=== PATIENT | female | born 1950 | race Caucasian/White ===

== ENCOUNTER → 2024-02-11 12:26 | Outpatient (REF) | payer OTHER, SELFPAY ==
[2024-02-11 13:34] LABS: % Immature Granulocytes 0.5 % (0-0.5); % Lymphocytes 48.2 % (20.5-51.1); % Monocytes 10.7 % (1.7-9.3); % Neutrophils 33.6 % (42.2-75.2); Absolute Eosinophils 0.3 10^3/uL (0-0.7); Absolute Monocytes 0.5 10^3/uL (0.1-0.6); Absolute Neutrophils 1.4 10^3/uL (1.4-6.5); Hematocrit 42.6 % (37.0-47.0); Mean Corp Hgb Conc. 32.9 g/dL (33.0-37.0); Mean Corpuscular Hgb 29.2 pg (27.0-31.0); Mean Corpuscular Volume 88.9 fL (81.0-99.0); Nucleated Red Blood Cells % 0 %; Platelet Count 205 10^3/uL (130-400); Red Blood Cell Count 4.79 10^6/uL (4.20-5.40); Red Cell Dist. Width 14.4 % (11.5-14.5); White Blood Cell Count 4.2 10^3/uL (4.8-10.8)
[2024-02-11 14:27] LABS: ALT (SGPT) 23 U/L (0-35); AST (SGOT) 28 U/L (14-36); Albumin 4.6 g/dl (3.5-5.0); Alkaline Phosphatase 77 U/L (38-126); Blood Urea Nitrogen 16 mg/dl (7-17); Carbon Dioxide 31 mmol/L (22-30); Chloride 103 mmol/L (98-107); Glucose 80 mg/dl (70-99); Potassium 4.4 mmol/L (3.5-5.1); Sodium 138 mmol/L (135-145); Total Bilirubin 0.5 mg/dl (0.2-1.3); Total Protein 7.6 g/dl (6.3-8.2); eGFR > 60.00
[2024-02-11 14:31] LABS: C-Reactive Protein < 5.00 mg/L (0.0-10.00)
[2024-02-11 14:54] LABS: Vitamin D, 25-OH*** 47.5 ng/mL (30-80)
== END ==
LOC: REG 12:26
PROVIDERS: ATTENDING PHYSICIAN Specialist; FAMILY PHYSICIAN Internal Medicine; OTHER PHYSICIAN Internal Medicine Rheumatology
DX: M16.12 Unilateral primary osteoarthritis, left hip (principal); E55.9 Vitamin D deficiency, unspecified; M15.4 Erosive (osteo)arthritis; M50.30 Other cervical disc degeneration, unspecified cervical region; M54.2 Cervicalgia; M85.80 Other specified disorders of bone density and structure, unspecified site; R79.82 Elevated C-reactive protein (CRP); Z51.81 Encounter for therapeutic drug level monitoring; Z68.29 Body mass index [BMI] 29.0-29.9, adult
CPT/HCPCS: 36415; 80053; 82306; 85025; 86140

== ENCOUNTER → 2024-07-21 13:08 | Outpatient (REF) | payer OTHER, SELFPAY ==
[2024-07-21 14:53] LABS: % Basophils 0.9 % (0-2); % Eosinophils 5.3 % (0-6); % Immature Granulocytes 0.7 % (0-0.5); % Lymphocytes 36.4 % (20.5-51.1); % Neutrophils 46.7 % (42.2-75.2); Absolute Eosinophils 0.2 10^3/uL (0-0.7); Absolute Lymphocytes 1.6 10^3/uL (1.2-3.4); Absolute Monocytes 0.4 10^3/uL (0.1-0.6); Hematocrit 40.3 % (37.0-47.0); Hemoglobin 13.4 g/dL (12.0-16.0); Mean Corp Hgb Conc. 33.3 g/dL (33.0-37.0); Mean Corpuscular Hgb 27.5 pg (27.0-31.0); Mean Corpuscular Volume 82.6 fL (81.0-99.0); Nucleated Red Blood Cells % 0 %; Platelet Count 194 10^3/uL (130-400); Red Blood Cell Count 4.88 10^6/uL (4.20-5.40); Red Cell Dist. Width 15.8 % (11.5-14.5); White Blood Cell Count 4.3 10^3/uL (4.8-10.8)
[2024-07-21 14:55] LABS: Urine Albumin Negative (Neg - Trace); Urine Bilirubin Negative (Negative); Urine Character Clear (Clear); Urine Color Yellow; Urine Glucose Negative (Negative); Urine Ketone Negative (Negative); Urine Leukocyte Negative (Negative); Urine Nitrite Negative (Negative); Urine Occult Blood Negative (Negative); Urine Urobilinogen Negative (Neg - 1+); Urine pH 6.5 (5.0-9.0)
[2024-07-21 15:22] LABS: ALT (SGPT) 42 U/L (0-35); AST (SGOT) 40 U/L (14-36); Albumin 4.5 g/dl (3.5-5.0); Alkaline Phosphatase 79 U/L (38-126); Blood Urea Nitrogen 15 mg/dl (7-17); Calcium 9.8 mg/dl (8.4-10.2); Carbon Dioxide 32 mmol/L (22-30); Chloride 99 mmol/L (98-107); Glucose 81 mg/dl (70-99); Potassium 4.3 mmol/L (3.5-5.1); Sodium 141 mmol/L (135-145); Total Bilirubin 0.4 mg/dl (0.2-1.3); Total Protein 7.3 g/dl (6.3-8.2); eGFR > 60.00
== END ==
LOC: REG 13:08
PROVIDERS: ATTENDING PHYSICIAN Internal Medicine Rheumatology
DX: M15.4 Erosive (osteo)arthritis (principal); M50.30 Other cervical disc degeneration, unspecified cervical region; M54.2 Cervicalgia; M85.80 Other specified disorders of bone density and structure, unspecified site; R79.82 Elevated C-reactive protein (CRP); Z51.81 Encounter for therapeutic drug level monitoring; Z68.29 Body mass index [BMI] 29.0-29.9, adult
CPT/HCPCS: 36415; 80053; 81003; 85025; 86140

== ENCOUNTER → 2024-11-21 14:27 | Outpatient (REF) | payer OTHER, SELFPAY ==
[2024-11-21 17:55] LABS: ALT (SGPT) 20 U/L (0-35); AST (SGOT) 25 U/L (14-36); Albumin 4.2 g/dl (3.5-5.0); Alkaline Phosphatase 81 U/L (38-126); Direct Bilirubin 0.3 mg/dl (0.0-0.4); Total Bilirubin 0.8 mg/dl (0.2-1.3); Total Protein 6.8 g/dl (6.3-8.2)
[2024-11-21 19:30] LABS: Hepatitis B Surface Antigen Negative (Negative)
[2024-11-21 19:48] LABS: Hepatitis B Core Ab, Total Negative (Negative); Hepatitis C Antibody Negative (Negative)
== END ==
LOC: REG 14:27
PROVIDERS: ATTENDING PHYSICIAN Internal Medicine Rheumatology
DX: K75.9 Inflammatory liver disease, unspecified (principal); M15.4 Erosive (osteo)arthritis; R79.82 Elevated C-reactive protein (CRP); Z51.81 Encounter for therapeutic drug level monitoring
CPT/HCPCS: 36415; 80076; 86140; 86704; 86803; 87340

== ENCOUNTER → 2025-02-22 10:42 | Outpatient (REF) | payer OTHER, SELFPAY ==
[2025-02-22 12:58] LABS: % Eosinophils 5.4 % (0-6); % Immature Granulocytes 0.3 % (0-0.5); % Lymphocytes 44.7 % (20.5-51.1); % Monocytes 10.1 % (1.7-9.3); % Neutrophils 38.5 % (42.2-75.2); Absolute Eosinophils 0.2 10^3/uL (0-0.7); Absolute Lymphocytes 1.7 10^3/uL (1.2-3.4); Absolute Monocytes 0.4 10^3/uL (0.1-0.6); Absolute Neutrophils 1.5 10^3/uL (1.4-6.5); Hematocrit 42.4 % (37.0-47.0); Hemoglobin 13.9 g/dL (12.0-16.0); Mean Corp Hgb Conc. 32.8 g/dL (33.0-37.0); Mean Corpuscular Hgb 29.2 pg (27.0-31.0); Mean Corpuscular Volume 89.1 fL (81.0-99.0); Mean Platelet Volume 11.6 fL (7.4-10.4); Nucleated Red Blood Cells % 0 %; Platelet Count 207 10^3/uL (130-400); Red Blood Cell Count 4.76 10^6/uL (4.20-5.40); Red Cell Dist. Width 14.1 % (11.5-14.5); White Blood Cell Count 3.9 10^3/uL (4.8-10.8)
[2025-02-22 12:59] LABS: Urine Albumin Negative (Neg - Trace); Urine Bilirubin Negative (Negative); Urine Character Clear (Clear); Urine Color Yellow; Urine Glucose Negative (Negative); Urine Ketone Negative (Negative); Urine Leukocyte Negative (Negative); Urine Nitrite Negative (Negative); Urine Occult Blood Negative (Negative); Urine Specific Gravity 1.015 (<1.030); Urine Urobilinogen Negative (Neg - 1+)
[2025-02-22 13:32] LABS: ALT (SGPT) 20 U/L (0-35); AST (SGOT) 22 U/L (14-36); Albumin 4.1 g/dl (3.5-5.0); Alkaline Phosphatase 63 U/L (38-126); Blood Urea Nitrogen 14 mg/dl (7-17); Calcium 9.9 mg/dl (8.4-10.2); Carbon Dioxide 31 mmol/L (22-30); Chloride 106 mmol/L (98-107); Glucose 83 mg/dl (70-99); HDL Cholesterol 73 mg/dl; Iron 94 ug/dl (37-170); LDL Cholesterol, Calculated 141 mg/dl; Potassium 5.2 mmol/L (3.5-5.1); Sodium 142 mmol/L (135-145); Total Bilirubin 0.5 mg/dl (0.2-1.3); Total Cholesterol 234 mg/dl (50-199); Total Protein 7.3 g/dl (6.3-8.2); Triglyceride 104 mg/dl (10-149); Very Low Density Lipoprotein 20 mg/dl (0-30); eGFR > 60.00
[2025-02-22 13:41] LABS: Percent Saturation 29 % (20-50); Total Iron Binding Capacity 323 ug/dl (265-497)
[2025-02-22 14:16] LABS: Vitamin B12 606 pg/ml (239-931)
== END ==
LOC: REG 10:42
PROVIDERS: ATTENDING PHYSICIAN Physician Assistant
DX: Z76.89 Persons encountering health services in other specified circumstances (principal); R53.83 Other fatigue; Z68.31 Body mass index [BMI] 31.0-31.9, adult; F32.0 Major depressive disorder, single episode, mild; G47.00 Insomnia, unspecified; R35.0 Frequency of micturition; M06.9 Rheumatoid arthritis, unspecified; Z13.220 Encounter for screening for lipoid disorders
CPT/HCPCS: 36415; 80053; 80061; 81003; 82607; 82728; 83540; 83550; 85025

== ENCOUNTER → 2025-07-12 14:50 | Outpatient (REF) | payer OTHER, SELFPAY | LOC: WDC 14:50 | PROVIDERS: ATTENDING PHYSICIAN Internal Medicine Rheumatology; FAMILY PHYSICIAN Physician Assistant | DX: Z13.820 Encounter for screening for osteoporosis (principal); Z12.31 Encounter for screening mammogram for malignant neoplasm of breast; Z76.89 Persons encountering health services in other specified circumstances; Z78.0 Asymptomatic menopausal state; M85.88 Other specified disorders of bone density and structure, other site | CPT/HCPCS: 77063; 77067; 77080 ==